=== PATIENT | male | born 1950 | race Caucasian/White ===

== ENCOUNTER 2017-06-29 11:07 | Emergency (ER) | payer MEDICARE ==
--- NOTE | 2017-06-29 12:14 | EDM.PDOC ---
ED HPI GENERAL MEDICAL PROBLEM - General Chief Complaint: Cardiovascular Problem Stated Complaint: IRREGULAR HEARTBEAT Time Seen by Provider: 06/29/17 12:01 Source of Information: Reports: Patient, Family History Limitations: Reports: No Limitations - History of Present Illness INITIAL COMMENTS - FREE TEXT/NARRATIVE: Raul presents today with complaints of chest palpitations for one month. Onset Date: 05/30/17 Duration: Week(s):, Intermittent Location: Reports: Other (palpitations, SOB with activity, feels like heart racing off and on. ) Severity: Moderate Improves with: Reports: Rest Worsens with: Reports: Movement (activity, stress) Associated Symptoms: Reports: Diaphoresis. Denies: Fever/Chills, Headaches, Nausea/Vomiting - Related Data Allergies Allergy/AdvReac Type Severity Reaction Status Date / Time codeine Allergy Nervousness Verified 06/29/17 11:35 Home Meds: Home Meds Acetaminophen/HYDROcodone [Orange 325-5 MG] 1 tab PO Q6H 06/29/17 [History] Citalopram [Citalopram HBr] 20 mg PO DAILY 06/29/17 [History] LORazepam 1 tab PO Q8H PRN 06/29/17 [History] Lisinopril 10 mg PO DAILY 06/29/17 [History] Simvastatin [Zocor] 20 mg PO DAILY 06/29/17 [History] busPIRone [Buspar] 1 tab PO DAILY 06/29/17 [History] Past Medical History Cardiovascular History: Reports: High Cholesterol, Hypertension, Other (See Below) Other Cardiovascular History: dilated ascending aorta. Neurological History: Reports: Concussion Psychiatric History: Reports: Anxiety - Past Surgical History HEENT Surgical History: Reports: Other (See Below) Other HEENT Surgeries/Procedures: nose surgery to fix fx. GI Surgical History: Reports: Hernia Repair/Other Social & Family History - Tobacco Use Smoking Status *Q: Never Smoker - Alcohol Use Days Per Week of Alcohol Use: 7 Number of Drinks Per Day: 4 Total Drinks Per Week: 28 - Recreational Drug Use Recreational Drug Use: No ED ROS GENERAL - Review of Systems Review Of Systems: See Below Constitutional: Reports: Diaphoresis, Other (Caffeine use of 3-4 cups coffee per day, recent decrease to 1-2 cups. ). Denies: Fever, Chills, Malaise, Weakness, Weight Loss HEENT: Reports: No Symptoms (Frequent use of alcohol.) Respiratory: Reports: Other (SOB with activity at times. ). Denies: Wheezing, Cough, Sputum, Hemoptysis Cardiovascular: Reports: Chest Pain (he also reports intermittent chest pain), Dyspnea on Exertion, Lightheadedness, Palpitations, Other (Dizziness off and on) . Denies: Edema Endocrine: Reports: No Symptoms GI/Abdominal: Reports: No Symptoms : Reports: No Symptoms Musculoskeletal: Reports: No Symptoms Skin: Reports: No Symptoms Neurological: Reports: Dizziness, Tingling (Tingling off and on to bilateral arms). Denies: Confusion, Headache, Numbness Psychiatric: Reports: No Symptoms Hematologic/Lymphatic: Reports: No Symptoms Immunologic: Reports: No Symptoms ED EXAM, GENERAL - Physical Exam Exam: See Below Free Text/Narrative:: Raul is an alert and oriented 67 year old male presenting to the ER today for complaints of palpitations, SOB with exertion, intermittent feelings of dizziness, chest pain and heart racing for 30 days. He is seen by Dr. Quique Connolly internal medicine [facility]. Attempts to contact Dr. Connolly or his partners unsuccessful. I was able to speak with a nurse at the clinic and she faxed over an EKG from 2007. Most recent echo report viewed per patient one chart. Echo completed 05/03/17: Normal size aorta but ascending mildly dilated at 4.1 cm (upper normal 3.7cm). Similar to echo of 07/01/15. Trace mitral valve regurgitation, trace tricuspid regurgitation, right ventrical systolic pressure estimate normal, EF 55-60%. Grade I or early diastolic dysfunction, right and left ventrical normal. No change in echo compared to one completed in 2016. Exam Limited By: No Limitations General Appearance: Alert, WD/WN, No Apparent Distress Eye Exam: Bilateral Eye: EOMI, Normal Inspection, PERRL Ears: Normal External Exam, Normal Canal, Normal TMs, Hearing Loss, Other ( Chronic hearing loss and chronic tinnitis - ) Ear Exam: Bilateral Ear: TM normal Nose: Normal Inspection, Normal Mucosa, No Blood Throat/Mouth: Normal Inspection, Normal Lips, Normal Oropharynx, Normal Voice, No Airway Compromise Head: Atraumatic, Normocephalic Neck: Normal Inspection, Supple, Non-Tender, Full Range of Motion. No: Lymphadenopathy (R), Lymphadenopathy (L) Respiratory/Chest: No Respiratory Distress, No Accessory Muscle Use, Chest Non- Tender Cardiovascular: Normal Peripheral Pulses, No Edema, No Gallop, No JVD, Irregularly Irregular, Other (Slight murmur appreciated, frequent multifocal PVCs. ) Peripheral Pulses: 2+: Radial (L), Radial (R), Dorsalis Pedis (L), Dorsalis Pedis (R) GI/Abdominal: Normal Bowel Sounds, Soft, Non-Tender, No Organomegaly, No Distention, No Abnormal Bruit, No Mass Extremities: Normal Inspection, Normal Range of Motion, Non-Tender, No Pedal Edema, Normal Capillary Refill Neurological: Alert, Oriented, CN II-XII Intact, Normal Cognition, Normal Gait, Normal Reflexes, No Motor/Sensory Deficits Psychiatric: Normal Affect, Normal Mood Skin Exam: Warm, Dry, Intact, Normal Color, No Rash. No: Cyanosis, Jaundice, Mottled, Pallor, Petechiae, Rash Lymphatic: No Adenopathy EKG INTERPRETATION EKG Date: 06/29/17 Time: 11:26 Rhythm: NSR Rate (Beats/Min): 67 P-Wave: Present ST-T: Normal QT: Normal Comparison: Other: (EKG from 2000) EKG Interpretation Comments: Frequent multifocal PVCs Course - Vital Signs Last Recorded V/S: Last Vital Signs Temp 36.8 C 06/29/17 11:34 Pulse 61 06/29/17 13:30 Resp 15 06/29/17 13:30 BP 111/71 06/29/17 13:30 Pulse Ox 97 06/29/17 13:30 - Orders/Labs/Meds Orders: Active Orders 24 hr Category Date Time Status EKG Documentation Completion [RC] ASDIRECTED Care 06/29/17 12:13 Active Iopamidol [Isovue-370 (76%)] Med 06/29/17 13:15 Active 100 ml IV . DIRECTED Sodium Chloride 0.9% [Normal Saline] 100 ml Med 06/29/17 13:15 Active IV ASDIRECTED Sodium Chloride 0.9% [Saline Flush] Med 06/29/17 13:04 Active 10 ml FLUSH ASDIRECTED PRN Saline Lock Insert [OM.PC] Routine Oth 06/29/17 13:04 Ordered EKG 12 Lead [EK] Routine Ther 06/29/17 12:12 Ordered Medication Orders Sodium Chloride (Normal Saline) 100 mls @ 4 mls/sec IV ASDIRECTED SATNAM Last Admin: 06/29/17 13:30 Dose: 4 mls/sec Iopamidol (Isovue-370 (76%)) 100 ml IV . DIRECTED [facility] Last Admin: 06/29/17 13:30 Dose: 100 ml Sodium Chloride (Saline Flush) 10 ml FLUSH ASDIRECTED PRN PRN Reason: Keep Vein Open Last Admin: 06/29/17 13:22 Dose: 10 ml Labs: Laboratory Tests 06/29/17 06/29/17 Range/Units 12:24 12:24 WBC 5.9 (4.5-11.0) K/uL RBC 4.39 (4.30-5.90) M/uL Hgb 14.0 (12.0-15.0) g/dL Hct 41.4 (40.0-54.0) % MCV 94 (80-98) fL MCH 32 H (27-31) pg MCHC 34 (32-36) % Plt Count 205 (150-400) K/uL Neut % (Auto) 69 H (36-66) % Lymph % (Auto) 16 L (24-44) % [place] % (Auto) 12 H (2-6) % Eos % (Auto) 3 (2-4) % Baso % (Auto) 0 (0-1) % Sodium 140 (140-148) mmol/L Potassium 4.3 (3.6-5.2) mmol/L Chloride 105 (100-108) mmol/L Carbon Dioxide 26 (21-32) mmol/L Anion Gap 9.0 (5.0-14.0) mmol/L BUN 17 (7-18) mg/dL Creatinine 1.0 (0.8-1.3) mg/dL Est Cr Clr Drug Dosing 77.39 mL/min Estimated GFR (MDRD) > 60 (>60) Glucose 89 (74-106) mg/dL Calcium 8.3 L (8.5-10.1) mg/dL Total Bilirubin 0.4 (0.2-1.0) mg/dL AST 20 (15-37) U/L ALT 34 (12-78) U/L Alkaline Phosphatase 75 (46-116) U/L Troponin I < 0.017 (0.000-0.056) ng/mL NT-Pro-B Natriuret Pep 73 (5-125) pg/mL Total Protein 6.2 L (6.4-8.2) g/dL Albumin 3.6 (3.4-5.0) g/dL Globulin 2.6 (2.3-3.5) g/dL Albumin/Globulin Ratio 1.4 (1.2-2.2) Patient lab work reviewed with him. We will complete CTA of chest to make sure the dilation of his ascending aorta has not increased. Patient and his in agreement. Meds: Medications Generic Name Dose Route Start Last Admin Trade Name Freq PRN Reason Stop Dose Admin Sodium Chloride 100 mls @ 4 mls/sec 06/29/17 13:15 06/29/17 13:30 Normal Saline IV 4 mls/sec ASDIRECTED SATNAM Administration Iopamidol 100 ml 06/29/17 13:15 06/29/17 13:30 Isovue-370 (76%) IV 100 ml . DIRECTED SATNAM Administration Sodium Chloride 10 ml 06/29/17 13:04 06/29/17 13:22 Saline Flush FLUSH 10 ml ASDIRECTED PRN Administration Keep Vein Open Discontinued Medications Generic Name Dose Route Start Last Admin Trade Name Freq PRN Reason Stop Dose Admin Lorazepam 0.5 mg 06/29/17 13:04 06/29/17 13:19 Ativan IVPUSH 06/29/17 13:05 0.5 mg ONETIME ONE Administration Metoprolol Succinate 12.5 mg 06/29/17 14:17 Toprol Xl PO 06/29/17 14:18 ONETIME ONE - Radiology Interpretation Free Text/Narrative:: Chest x-ray wet read, reviewed with Dr. Felix. Noted slightly widened mediastinum. Will complete CTA of chest. CT Results Date: 06/29/17 (Ascending aorta upper limits of normal at 4cm. No evidence of dissection. Remainder of the thoracic aorta normal caliber. No evidence of pulmonary embolism. Cysts in the liver. largest in left lobe measuring 3.7 cm and largest in the right lobe measuring 3.2 cm. Degenerative disc disease and hypertrophic change in spine. ) - Re-Assessments/Exams Free Text/Narrative Re-Assessment/Exam: 06/29/17 14:21 CT results discussed with Dr. Felix, patient and his . He will start use of Metoprolol succinate 12.5mg PO daily and follow up with his primary provider in 7 to 10 days. Departure - Departure Time of Disposition: 14:22 Disposition: Home, Self-Care 01 Condition: Fair Clinical Impression: Palpitations, Multifocal PVCs, Chest pain Instructions: Premature Ventricular Contraction Referrals: PCP,None [Primary Care Provider] - Forms: ED Department Discharge Additional Instructions: You have been evaluated and treated in the emergency room for palpitations. CT angio of chest shows no worsening of ascending aorta upper limits of normal dilation at 4cm. No dissection, no evidence of pulmonary embolism or acute findings. Troponin and BNP negative. EKG showed sinus with multifocal PVCs. Continue your medications as you currently take them. Add metoprolol succinate 12.5mg PO once a day. Follow up with your primary provider in 7 to 10 days. It would be best for you to complete Holter monitor to monitor heart rate/rhythm , Stress test for shortness of breath with exertion if your primary provider determines that is best. Also follow up with primary about liver cysts. Decrease/stop use of caffeine as this can cause PVCs and a fast heart rate. Decrease/stop alcohol use as this can negatively effect heart, kidney and liver. Return at any time or telphone 911 for worsening palpitations, chest pain, SOB difficulty breathing or concerns. - My Orders Last 24 Hours: My Active Orders 06/29/17 12:12 EKG 12 Lead [EK] Routine 06/29/17 12:13 EKG Documentation Completion [RC] ASDIRECTED 06/29/17 13:04 Sodium Chloride 0.9% [Saline Flush] 10 ml FLUSH ASDIRECTED PRN Saline Lock Insert [OM.PC] Routine 06/29/17 13:15 Iopamidol [Isovue-370 (76%)] 100 ml IV . DIRECTED Sodium Chloride 0.9% [Normal Saline] 100 ml IV ASDIRECTED - Assessment/Plan Last 24 Hours: My Active Orders 06/29/17 12:12 EKG 12 Lead [EK] Routine 06/29/17 12:13 EKG Documentation Completion [RC] ASDIRECTED 06/29/17 13:04 Sodium Chloride 0.9% [Saline Flush] 10 ml FLUSH ASDIRECTED PRN Saline Lock Insert [OM.PC] Routine 06/29/17 13:15 Iopamidol [Isovue-370 (76%)] 100 ml IV . DIRECTED Sodium Chloride 0.9% [Normal Saline] 100 ml IV ASDIRECTED Assessment:: Palpitations Chest pain Multifocal PVCs Plan: Patient evaluated and treated in the emergency room for palpitations. CT angio of chest shows no worsening of ascending aorta upper limits of normal dilation at 4cm. No dissection, no evidence of pulmonary embolism or acute findings. Troponin and BNP negative. EKG showed sinus with multifocal PVCs. Continue current medications. Add metoprolol succinate 12.5mg PO once a day. Follow up with his primary provider in 7 to 10 days. It would be best for him to complete Holter monitor to monitor heart rate/rhythm , Stress test for shortness of breath with exertion if his primary provider determines that is best. Also follow up with primary about liver cysts. Decrease/stop use of caffeine as this can cause PVCs and a fast heart rate. Decrease/stop alcohol use as this can negatively effect heart, kidney and liver. Return at any time or telphone 911 for worsening palpitations, chest pain, SOB difficulty breathing or concerns.
[2017-06-29] MEDS ORDERED: LORazepam 2 MG/ML SDV IVPUSH ONE (13:04)
[2017-06-29] MEDS ORDERED: Sodium Chloride 0.9% 10 ML Syringe FLUSH PRN (13:04)
[2017-06-29] MEDS ORDERED: Iopamidol 755 Mg/ML 100 ML Bottle IV SCH (13:15)
[2017-06-29] MEDS ORDERED: Sodium Chloride 0.9% 100 ML IV SCH (13:15)
--- NOTE | 2017-06-29 13:44 | CR ---
Chest 2V INDICATION: Palpitations COMPARISON: None FINDINGS: Two views. Heart size normal. Lungs are clear. No infiltrate or pleural effusion. No sig ns of pulmonary edema.
--- NOTE | 2017-06-29 14:06 | CT ---
Ang Chest INDICATION: Widened mediastinum per C, palpitations,chest pain TECHNIQUE: CT chest performed with IV contrast using CTA protocol. 3D radial and/or 3D sagittal MIP images reconstructions were obtained and reviewed. Dosage reduction and iterative reconstruction techniques employed. COMPARISON: None. FINDINGS: Ascending aorta upper limits of normal at 4 cm. No evidence of dissection. Remainder of the thoracic aorta normal caliber. No evidence of pulmonary embolism. No infiltrates or signs of pulm onary edema. No mediastinal mass. No pleural effusions. Cysts in the liver, largest in left lobe shelley uring 3.7 cm and largest in the right lobe measuring 3.2 cm. Degenerative disc disease and hypertroph ic change in the spine. IMPRESSION: 1. Ascending aorta upper limits of normal at 4 cm. No dissection. 2. No acute findings in the chest. No evidence of pulmonary embolism.
[2017-06-29] MEDS ORDERED: Metoprolol Succinate 25 MG Tab.ER PO ONE (14:17)
== END 2017-06-29 14:40 | disposition home or self-care (01) ==
LOC: JP.ED 11:07
DX: I49.3 Ventricular premature depolarization (principal); R07.9 Chest pain, unspecified; I10 Essential (primary) hypertension; E78.00 Pure hypercholesterolemia, unspecified; F41.9 Anxiety disorder, unspecified; Z79.899 Other long term (current) drug therapy; Z88.5 Allergy status to narcotic agent
CPT/HCPCS: 36415; 71046; 71275; 80053; 83880; 84484; 85025; 93005; 96374; 99284; 99285; A9270; J2060; J7030; J7050; Q9967

== ENCOUNTER 2024-03-07 10:16 | Day surgery (SDC) | payer MEDICARE ==
[2024-03-07] MEDS ORDERED: fentaNYL 50 MCG/ML SDV ONE (11:18)
[2024-03-07] MEDS ORDERED: Propofol 200 MG/20 ML SDV ONE (11:18)
[2024-03-07] MEDS: Lactated Ringers 1,000 ML IV SCH (13:30)
== END 2024-03-07 13:50 | disposition home or self-care (01) ==
LOC: JP.SDS 10:16
PROVIDERS: ATTEND Surgery
DX: Z12.11 Encounter for screening for malignant neoplasm of colon (principal); K57.30 Diverticulosis of large intestine without perforation or abscess without bleeding
CPT/HCPCS: G0121; J2704; J3010; J7120; 00812-QZ